=== PATIENT | female | born 1990 | race African-American/Black ===

== ENCOUNTER 2022-06-26 18:34 | Inpatient (IN) | payer OTHER ==
[2022-06-26] MEDS ORDERED: DINOPROSTONE 10 MG VAGINAL SUPPOSITORY VG ONE (19:45)
[2022-06-26 19:51] LABS: EOS % 1.6 % (0-4.5); HEMATOCRIT 36.5 % (32.4-45.2); HEMOGLOBIN 12.2 GM/dL (10.7-15.3); LYMPH % 31.7 % (8-40); MCH 26.3 pg (25.7-33.7); MCHC 33.4 g/dl (32.0-36.0); MEAN CELL VOLUME 78.6 fl (80-96); MONO % 9.9 % (3.8-10.2); NEUT % 55.8 % (42.8-82.8); PLATELET COUNT 203 10^3/uL (134-434); RBC 4.64 M/mm3 (3.60-5.2); RDW 13.2 % (11.6-15.6); WHITE BLOOD COUNT 6.4 K/mm3 (4.0-10.0)
[2022-06-26 20:10] LABS: POTASSIUM 3.8 mmol/L (3.5-5.1)
[2022-06-26 20:12] LABS: BLOOD UREA NITROGEN 12.3 mg/dL (7-18)
[2022-06-26 20:15] LABS: CREATININE 0.7 mg/dL (0.55-1.3)
[2022-06-26 20:16] LABS: INR 1.1 (0.83-1.09); PROTHROMBIN TIME (PATIENT) 12.7 SEC (9.7-13.0)
[2022-06-26 20:18] LABS: ACTIVATED PTT 30.8 SECONDS (25.2-36.5)
[2022-06-26] MEDS: ELECTROLYTE-148 SOLN 1,000 ML IV SCH (20:30)
[2022-06-26 20:35] VITALS: BMI 38.2
[2022-06-26] MEDS ORDERED: OXYTOCIN 30 UNITS in 0.9% NS 30 UNIT/500 ML INFUS.BAG IVPB SCH (21:45)
[2022-06-27] MEDS ORDERED: OXYTOCIN 30 UNITS in 0.9% NS 30 UNIT/500 ML INFUS.BAG IVPB ONE (00:07)
[2022-06-27] MEDS ORDERED: FENTANYL/BUPIVACAINE/NS/PF - PCEA - 50 ML DISP.SYRIN EP ONE (03:20)
[2022-06-27] MEDS: ELECTROLYTE-148 SOLN 1,000 ML IV SCH (03:30)
[2022-06-27] MEDS ORDERED: BUPIVACAINE HCL/PF 0.25% (2.5MG/ML) 10 ML VIAL ONE (03:31)
[2022-06-27] MEDS ORDERED: LIDO 2%/EPI 1:200000 PRESRVFRE (20 ML SDVIAL) ONE ×2 (03:31)
[2022-06-27] MEDS ORDERED: NALOXONE HCL 0.4 MG/ML VIAL IVPUSH PRN (04:03)
[2022-06-27] MEDS ORDERED: FENTANYL/BUPIVACAINE/NS/PF - PCEA - 50 ML DISP.SYRIN EP SCH (04:15)
[2022-06-27] MEDS ORDERED: LIDOCAINE HCL 1% PRESERVATIVE FREE - 30ML VIAL ONE (07:51)
[2022-06-27] MEDS ORDERED: OXYTOCIN 20 UNITS in 0.9% NS 20 UNIT/1,000 ML INFUS.BAG IV ONE (07:52)
[2022-06-27] MEDS ORDERED: METHYLERGONOVINE MALEATE 0.2 MG/1 ML AMP IM PRN (08:42)
[2022-06-27] MEDS ORDERED: BISACODYL 10 MG SUPP.RECT RC PRN (08:42)
[2022-06-27] MEDS ORDERED: BENZOCAINE 20% 57 GM BOTTLE TP PRN (08:42)
[2022-06-27] MEDS ORDERED: ACETAMINOPHEN 325 MG TABLET (FP) PO PRN (08:42)
[2022-06-27] MEDS ORDERED: WITCH HAZEL 50% (TUCKS) 40 PAD/JAR PAD TP PRN (08:42)
[2022-06-27] MEDS ORDERED: BENZOCAINE 28 GM HEMORRHOIDAL OINTMENT TP PRN (08:42)
[2022-06-27] MEDS ORDERED: oxyCODONE HCL 5 MG TABLET PO PRN (08:42)
[2022-06-27] MEDS ORDERED: OXYTOCIN 20 UNITS in 0.9% NS 20 UNIT/1,000 ML INFUS.BAG IV SCH (08:45)
[2022-06-27 09:07] LABS: CORD BASE EXCESS -0.3 mmol/L (0-2); CORD HCO3 25.8 mmHg (20-29); CORD PCO2 47.5 mmHg (30-78); CORD pH 7.352 (7.14-7.44)
[2022-06-27 09:10] LABS: CORD HCO3 21.6 mmHg (20-29); CORD PCO2 46.1 mmHg (30-78); CORD pH 7.289 (7.14-7.44)
[2022-06-27] MEDS: PRENATAL VITAMINS W/ FOLIC ACID TABLET (FP) PO SCH (11:30)
[2022-06-27 11:46] VITALS: RESP 18
[2022-06-27] MEDS: IBUPROFEN 600 MG TABLET (FP) PO PRN (17:59)
[2022-06-28] MEDS: IBUPROFEN 600 MG TABLET (FP) PO PRN ×4 (03:50→20:54)
[2022-06-28 07:21] LABS: BASO % 0.3 % (0-2.0); EOS % 1.5 % (0-4.5); HEMATOCRIT 28.1 % (32.4-45.2); HEMOGLOBIN 9.7 GM/dL (10.7-15.3); LYMPH % 21.4 % (8-40); MCH 27.1 pg (25.7-33.7); MCHC 34.3 g/dl (32.0-36.0); MEAN CELL VOLUME 79.1 fl (80-96); MONO % 9.3 % (3.8-10.2); NEUT % 67.5 % (42.8-82.8); PLATELET COUNT 131 10^3/uL (134-434); RBC 3.56 M/mm3 (3.60-5.2); RDW 12.7 % (11.6-15.6); WHITE BLOOD COUNT 8.8 K/mm3 (4.0-10.0)
[2022-06-28] MEDS: PRENATAL VITAMINS W/ FOLIC ACID TABLET (FP) PO SCH (09:03)
[2022-06-28] MEDS ORDERED: SENNOSIDES/DOCUSATE COMBO (SENNA PLUS) TABLET (UD) PO PRN (22:00)
[2022-06-29] MEDS: IBUPROFEN 600 MG TABLET (FP) PO PRN (08:48)
[2022-06-29] MEDS: PRENATAL VITAMINS W/ FOLIC ACID TABLET (FP) PO SCH (09:15)
[2022-06-29 09:23] VITALS: BP 110/72; PULSE 89; TEMP 98.1
== END 2022-06-29 12:30 | disposition home or self-care (01) | DRG 807 ==
LOC: JLDR 18:34 → J3W 06-27 10:55
PROVIDERS: ADMIT Obstetrics & Gynecology; ATTEND Obstetrics & Gynecology
PROC: 0HQ9XZZ Repair Perineum Skin, External Approach (ICD-10-PCS; principal; 2022-06-27)
PROC: 10E0XZZ Delivery of Products of Conception, External Approach (ICD-10-PCS; 2022-06-27)
DX: O36.5930 Maternal care for other known or suspected poor fetal growth, third trimester, not applicable or unspecified (principal); Z37.0 Single live birth; O34.13 Maternal care for benign tumor of corpus uteri, third trimester; D25.9 Leiomyoma of uterus, unspecified; Z3A.39 39 weeks gestation of pregnancy; O70.0 First degree perineal laceration during delivery; O99.843 Bariatric surgery status complicating pregnancy, third trimester; O99.213 Obesity complicating pregnancy, third trimester; E66.9 Obesity, unspecified; Z3A.37 37 weeks gestation of pregnancy
CPT/HCPCS: 36415; 36600; 80048; 82803; 85025; 85610; 85730; 86780; 86850; 86900; 86901; 88307-TC; C9803-CS; U0003; U0005